=== PATIENT | male | born 1950 | race Caucasian/White ===

== ENCOUNTER 2024-07-14 00:52 | Observation (INO) ==
[2024-07-14] MEDS: SODIUM CHLORIDE 1,000 ML IV ONE ×2 (01:16→06:32)
[2024-07-14 01:24] LABS: BILIRUBIN,URINE Negative (NEGATIVE); CLARITY,URINE Clear (CLEAR); COLOR,URINE Yellow (YELLOW); GLUCOSE, URINE (UA) Negative (NEGATIVE); KETONES,URINE Negative (NEGATIVE); LEUKOCYTE ESTERASE ,URINE Negative (NEGATIVE); NITRITE,URINE Negative (NEGATIVE); PROTEIN,URINE Negative (NEGATIVE); URINE, BLOOD Trace-lysed (NEGATIVE)
--- NOTE | 2024-07-14 01:24 | ED.PDOC ---
General ED Provider: Dr. MIKE ASHLEY MD Chief Complaint: Abdominal Pain Stated Complaint: Patient is a 74-year-old male that came in the emergency department the [facility] for right lower quadrant abdominal pain. Patient states he thinks he is having appendicitis. Patient stated that he has had it before but that they did not do anything for him when he was a kid. Patient stated that the pain started 30 minutes prior to arrival. Patient stated that just laying there the pains only 3 out of 10. He states however if he moves around it becomes an 8 out of 10. Patient also stated that he has a allergy to iodine contrast for which she has a mild case of hives. Patient denied any nausea or vomiting with his abdominal pain. Patient denied any hematochezia, hemoptysis, or melanic stools. Patient denied any recent trauma to the abdomen. Patient denied any diarrhea or fever. Patient denies any other acute symptoms not currently mentioned in this HPI. Patient's vital signs are stable. Patient's GCS is 15. Time Seen by Provider: 07/14/24 00:58 Mode of Arrival: Walk-In Information Source: Patient Exam Limitations: No limitations Primary Care Provider: FLORY LARSON Nursing and Triage Documentation Reviewed and Agree: Yes What is Opioid Naive?: *Opioid Naive implies the patient is not already taking opioids or not chronically receiving opioids on a daily basis. *PRN dosing is not "usually" associated with tolerance. *Patients are at higher risk of over-sedation and aspiration. What is Opioid Tolerant?: *Opioid Tolerance implies less than the expected response to an opioid. *Acquired tolerance is defined by the patient taking 60mg of oral morphine daily (or equianalgesic dose of another opioid) for 1 week or more. *Often associated with chronic pain. *May take more than usual dose to achieve desired pain control. Review of Systems Review Of Systems Constitutional: Reports No symptoms Eyes: Reports No symptoms Ears, Nose, Mouth, Throat: Reports No symptoms Respiratory: Reports No symptoms Cardiac: Reports No symptoms GI: Reports Abdominal pain (Right lower quadrant abdominal pain.) : Reports No symptoms Musculoskeletal: Reports No symptoms Skin: Reports No symptoms Neurological: Reports No symptoms Endocrine: Reports No symptoms Hematologic/Lymphatic: Reports No symptoms All Other Systems: Reviewed and Negative [facility] Medical History Coronary bypass graft mechanical complication Hernia, femoral, 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 Social History Smoking and tobacco status: Never smoker Alcohol intake: never Surgical History H/O hernia repair Physical Exam Physical Exam Appearance: Reports Well-appearing, No pain distress and Well-nourished Ill-appearing: None Pain Distress: None Eyes: Reports KEELY, EOMI and Conjunctiva clear ENT: Reports Nose normal and Oropharynx normal Neck: Supple Respiratory: Reports Airway patent, Breath sounds clear, Breath sounds equal and Respirations nonlabored Cardiovascular: Reports RRR, Pulses normal, No rub and No murmur GI/: Reports Soft, Nontender, No masses, Bowel sounds normal and Tender (Patient had tenderness to palpation over the right lower abdominal quadrant at [place] point. Rebound tenderness was noted. ) Musculoskeletal: Reports Normal strength, ROM intact and No edema Skin: Reports Warm, Dry and Normal color Neurological: Reports Sensation intact, Motor intact, Reflexes intact, Cranial nerves intact, Alert and Oriented Psychiatric: Reports Affect appropriate and Mood appropriate Course Course 07/14/24 01:15 07/14/24 01:15 Orders, Labs, Meds: Lab Review 07/14/24 07/14/24 01:05 01:15 WBC 5.68 RBC 4.59 L Hgb 14.3 Hct 44.0 MCV 95.9 H MCH 31.2 H MCHC 32.5 RDW Coeff of Liss 13.3 Plt Count 112 L Immature Gran % (Auto) 0.2 Neut % (Auto) 61.3 Lymph % (Auto) 25.9 [place] % (Auto) 9.7 Eos % (Auto) 2.5 Baso % (Auto) 0.4 Neut # (Auto) 3.5 Lymph # (Auto) 1.5 [place] # (Auto) 0.6 Eos # (Auto) 0.1 Baso # (Auto) 0.0 Immature Gran # (Auto) 0.0 Sodium 138.5 Potassium 3.88 Chloride 104.2 Carbon Dioxide 25.5 Anion Gap 12.68 BUN 23.3 H Creatinine 1.68 H Estimated GFR (MDRD) 40.00 BUN/Creatinine Ratio 13.86 Glucose 104.1 Calcium 9.39 Total Bilirubin 0.70 AST 28.1 ALT 15.7 Alkaline Phosphatase 95.7 Total Protein 7.34 Albumin 4.37 Globulin 2.97 Albumin/Globulin Ratio 1.47 Lipase 178.3 Urine Color Yellow Urine Clarity Clear Urine pH 6.0 Ur Specific [place] 1.020 Urine Protein Negative Urine Glucose (UA) Negative Urine Ketones Negative Urine Blood Trace-lysed Urine Nitrite Negative Urine Bilirubin Negative Urine Urobilinogen 1.0 H Ur Leukocyte Esterase Negative Urine Microscopic RBC 0-2 Urine Microscopic WBC 0-2 Ur Squamous Epith Cells 0-2 Orders Category Date Time Status NPO REMINDER: IMAGING ONCE CARE 07/14/24 01:42 Active ED IV/MEDIPORT/POWERPORT .ONCE EMERGENCY 07/14/24 01:07 Active CBC W/ AUTO DIFF Stat LAB 07/14/24 01:15 Completed COMPREHENSIVE METABOLIC PANEL Stat LAB 07/14/24 01:15 Completed LIPASE Stat LAB 07/14/24 01:15 Completed URINALYSIS C & S IF INDICATED Stat LAB 07/14/24 01:05 Completed 0.9 % Sodium Chloride [Saline Flush] Meds 07/14/24 01:07 Active 1 syr IVF PRN PRN Diphenhydramine Inj [Benadryl] Meds 07/14/24 04:30 Discontinued 50 mg IVP ONCE ONE Iodixanol [Visipaque 320 mg/ml 100Ml] Meds 07/14/24 05:27 Discontinued 100 ml IVP ONCE ONE Ketorolac Tromethamine [Toradol] Meds 07/14/24 01:24 Discontinued 30 mg IVP ONCE STA Methylprednisolone Sod Succ/Pf [Solu-Medrol 40 mg] Meds 07/14/24 05:30 Discontinued 40 mg IVP ONCE ONE Methylprednisolone Sod Succ/Pf [Solu-Medrol 40 mg] Meds 07/14/24 01:17 Discontinued 40 mg IVP ONCE STA Sodium Chloride 0.9% [Sodium Chloride] 1,000 ml Meds 07/14/24 01:[address] ABDOMEN/PELVIS W CONTRAST Stat RADS 07/14/24 05:30 Completed Medications Generic Name Dose Route Start Last Admin Trade Name Freq PRN Reason Stop Dose Admin Sodium Chloride 1 syr 07/14/24 01:07 0.9% Sodium Chloride 10 Ml Disp.Syrin IVF PRN PRN To flush IV Discontinued Medications Generic Name Dose Route Start Last Admin Trade Name Freq PRN Reason Stop Dose Admin Diphenhydramine HCl 50 mg 07/14/24 04:30 07/14/24 04:28 Diphenhydramine Inj 50 Mg/Ml Vial IVP 07/14/24 04:31 50 mg ONCE ONE Administration Sodium Chloride 1,000 mls @ 1,000 mls/hr 07/14/24 01:07 07/14/24 04:02 Sodium Chloride IV 07/14/24 02:06 Infused BOLUS ONE Infusion Iodixanol 100 ml 07/14/24 05:27 07/14/24 05:27 Iodixanol 320 Mg/Ml 100ml IVP 07/14/24 05:28 100 ml ONCE ONE Administration Ketorolac Tromethamine 30 mg 07/14/24 01:24 07/14/24 01:35 Ketorolac Tromethamine 30 Mg/Ml Vial IVP 07/14/24 01:25 30 mg ONCE STA Administration Methylprednisolone Sodium Succinate 40 mg 07/14/24 01:17 07/14/24 01:30 Methylprednisolone Sod Succ/Pf 40 Mg/Ml Vial IVP 07/14/24 01:18 40 mg ONCE STA Administration Methylprednisolone Sodium Succinate 40 mg 07/14/24 05:30 07/14/24 05:39 Methylprednisolone Sod Succ/Pf 40 Mg/Ml Vial IVP 07/14/24 05:31 40 mg ONCE ONE Administration Vital Signs: Temp Pulse Resp BP Pulse Ox 07/14/24 00:53 98.4 F 73 18 171/92 H 98 Discharge Plan Discharge Patient Disposition: PLACED OBSERVATION Discharge Problem: Diverticulitis, Abdominal pain, acute, right lower quadrant, IMANI (acute kidney injury), Thrombocytopenia Did you review [place] [employer] for ALL controlled substances?: Not Applicable ED Provider: MIKE ASHLEY Condition: Stable Physician Progress Note: Patient is a 74-year-old male that came in the emergency department the [facility] for right lower quadrant abdominal pain. Patient states he thinks he is having appendicitis. Patient stated that he has had it before but that they did not do anything for him when he was a kid. Patient stated that the pain started 30 minutes prior to arrival. Patient stated that just laying there the pains only 3 out of 10. He states however if he moves around it becomes an 8 out of 10. Patient also stated that he has a allergy to iodine contrast for which she has a mild case of hives. Patient denied any nausea or vomiting with his abdominal pain. Patient denied any hematochezia, hemoptysis, or melanic stools. Patient denied any recent trauma to the abdomen. Patient denied any diarrhea or fever. Patient denies any other acute symptoms not currently mentioned in this HPI. Patient's vital signs are stable. Patient's GCS is 15. -Due to patient's iodine mild allergy. Will do a prophylactic contrast media reaction treatment with IV methylprednisolone 40 mg stat (0130). Will give another dose in 4 hours (0530). 1 hour before the procedure will give IV Benadryl 50 mg (0430). Then 1 hour after the IV Benadryl 50 mg will give IV contrast (0530) and get a CT of the abdomen and pelvis with contrast to rule out appendicitis or any other acute intra-abdominal pathology. -Will order IV fluids 1 L normal saline bolus for dehydration. -Will order baseline labs. -Will give IV Toradol 30 mg once for pain. -Pt has an IMANI. We are hydrating pt's kidneys as mentioned above with IV NS. -Pt was found to have a 112k thrombocytopenia which is stable from previous visits. -CT of the abdomen and pelvis shows 1. No urinary or bowel obstruction and normal appendix. 2. Focal area of decreased cortical enhancement within the medial posterior left kidney. Pyelonephritis is not excluded 3. Status post cholecystectomy. 4. Mild stranding along the margins of the sigmoid colon as seen on axial image 63. This likely represents mild acute uncomplicated diverticulitis. -Will treat patient's diverticulitis with IV zosyn 3.375 mg. Will continue IV maintenance fluids at 100 mL an hour for gentle hydration for patient's IMANI. -(0610) spoke to hospitalist here at [facility] about observation for this patient and she has agreed to admit the patient for an IMANI and diverticulitis for IV antibiotic therapy. Patient's stable at time of admission.
[2024-07-14 01:26] LABS: BASOPHILS % (AUTO) 0.4 % (0.0-3.0); EOSINOPHILS # (AUTO) 0.1 K/ul (0.0-0.7); EOSINOPHILS % (AUTO) 2.5 % (0.0-7.0); HEMOGLOBIN 14.3 g/dl (14.0-18.0); IMMATURE GRANULOCYTE % (AUTO) 0.2 % (0.0-5.0); LYMPHOCYTES # (AUTO) 1.5 K/uL (0.60-3.4); LYMPHOCYTES % (AUTO) 25.9 (10.0-50.0); MEAN CORPUSCULAR HEMOGLOBIN 31.2 pg (27.0-31.0); MEAN CORPUSCULAR HGB CONC 32.5 (31.8-35.4); MEAN CORPUSCULAR VOLUME 95.9 fl (80.0-94.0); MONOCYTES # (AUTO) 0.6 K/uL (0.4-2.0); MONOCYTES % (AUTO) 9.7 (0-10); NEUTROPHILS # (AUTO) 3.5 K/ul (2.0-6.9); NEUTROPHILS % (AUTO) 61.3 % (42.2-75.2); PLATELET COUNT 112 10^3/uL (140-440); RDW COEFFICIENT OF VARIATION 13.3 % (11.6-14.8); RED BLOOD COUNT 4.59 10^6/ul (4.70-6.10); WHITE BLOOD COUNT 5.68 K/ul (4.2-10.2)
[2024-07-14] MEDS: SOLU-MEDROL 40 MG IVP STA (01:30)
[2024-07-14 01:31] LABS: SQUAMOUS EPITHELIAL CELL,UR 0-2 (0-5); URINE RBC, MICROSCOPIC 0-2 (0-2); URINE WBC, MICROSCOPIC 0-2 (0-2)
[2024-07-14 01:34] LABS: ALANINE AMINOTRANSFERASE 15.7 U/L (0-50); ALBUMIN 4.37 g/dL (3.5-5.0); ALKALINE PHOSPHATASE 95.7 U/L (56-119); ASPARTATE AMINO TRANSFERASE 28.1 U/L (17-59); BILIRUBIN,TOTAL 0.7 mg/dL (0.2-1.3); BLOOD UREA NITROGEN 23.3 mg/dL (9-20); CALCIUM 9.39 mg/dL (8.4-10.2); CARBON DIOXIDE 25.5 mmol/L (22-30.0); CHLORIDE 104.2 mmol/L (98-107); CREATININE 1.68 mg/dL (0.60-1.10); GLUCOSE 104.1 mg/dL (74-106); LIPASE 178.3 U/L (23-300); POTASSIUM 3.88 mmol/L (3.5-5.1); SODIUM 138.5 mmol/L (134.5-145); TOTAL PROTEIN 7.34 g/dL (6.3-8.2)
[2024-07-14] MEDS: TORADOL IVP STA (01:35)
[2024-07-14] MEDS: BENADRYL IVP ONE (04:28)
[2024-07-14] MEDS: VISIPAQUE 320 MG/ML 100ML IVP ONE (05:27)
[2024-07-14] MEDS: SOLU-MEDROL 40 MG IVP ONE (05:39)
--- NOTE | 2024-07-14 06:04 | CT ---
EXAM: CT ABDOMEN PELVIS WITH INTRAVENOUS CONTRAST 07/14/2024. SAGITTAL AND CORONAL REFORMATTED IMAGE S OBTAINED HISTORY: Right lower quadrant pain COMPARISON: 05/20/2024 FINDINGS: The liver shows no acute abnormality. Gallbladder has been removed. The adrenal glands and right kidney show no acute abnormality. There is a focal area of decreased co rtical enhancement within the medial posterior left kidney. This can be seen on axial image 41 and c oronal image 59. Pyelonephritis is not excluded. There is no hydronephrosis. Unremarkable urinary bladder. The spleen and pancreas show no acute abnormality. There is no bowel obstruction. The appendix is normal. No free air. No free fluid. There is extensive colonic diverticulosis. Focal subtle stranding with in the right anterior pelvis adjacent to the sigmoid colon. This can be seen on axial image 63. Thi s likely represents mild acute uncomplicated diverticulitis. No pathologic appearing mesenteric or retroperitoneal lymphadenopathy. No acute osseous abnormality. IMPRESSION: 1. No urinary or bowel obstruction and normal appendix. 2. Focal area of decreased cortical enhancement within the medial posterior left kidney. Pyelonephr itis is not excluded 3. Status post cholecystectomy. 4. Mild stranding along the margins of the sigmoid colon as seen on axial image 63. This likely rep resents mild acute uncomplicated diverticulitis. All CT scans are performed using dose optimization techniques as appropriate to the performed exam an d include at least one of the following: Automated exposure control, adjustment of the mA and/or kV according t o size, and the use of iterative reconstruction technique.
[2024-07-14] MEDS: ZOSYN 3.375 GM 3.375 GM in SODIUM CHLORIDE 100ML 100 ML IV ONE (06:32)
[2024-07-14 06:42] LABS: SARS COV-2 RNA RAPID NAAT NEGATIVE (NEGATIVE)
[2024-07-14] MEDS ORDERED: TYLENOL PO PRN (08:41)
[2024-07-14] MEDS ORDERED: ZOFRAN SDV IVP PRN (08:42)
[2024-07-14 09:43] VITALS: BMI 22.2
[2024-07-14] MEDS: ASPIRIN EC PO SCH (09:49)
[2024-07-14] MEDS: CRESTOR PO SCH (09:49)
[2024-07-14] MEDS: ZOSYN 3.375 GM 3.375 GM in SODIUM CHLORIDE 100ML 100 ML IV SCH (12:08)
--- NOTE | 2024-07-14 13:43 | PCM ---
Date of Service Date Seen by Provider: 07/14/24 Time Seen by Provider: 08:30 Admit Day/Time Admission Date: 07/14/24 Admission Time: 06:22 Reason for Admission Chief Complaint: IMANI DIVERTICULITIS Hospital Provider Hospital Provider: MELANIE KING [place] [facility] [place] Primary Care Physician: FLORY LARSON History of Present Illness History of Present Illness: Patient is a 74 year old male with pmhx of diverticulitis, hypertension, hyperlipidemia, hx of melanoma who presented to the ER in the middle the night due to right lower quadrant pain. Patient states it started yesterday and then woke him up in the sleep. He was worried that he might have appendicitis. He denies any nausea, vomiting, diarrhea. States he does have a history of diverticulitis in the past but it has been a long time. In the ER CT was done showing a mild diverticulitis of the sigmoid colon. Patient denies pain in the left lower quadrant. It also showed an enhancement of the left kidney, cannot rule out pyelonephritis. Patient denies flank pain and his UA was negative. He states that he did just have a kidney stone removed back in May. Overall labs were unremarkable except for his creatinine was 1.68 with a baseline of 1.2. He was given Zosyn and fluids in the ER. Patient admitted to [facility]. Case Discussed With Case Discussed With: Patient's case was discussed with the ER Physicians, Dr. Marie. 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 C77.9 - Secondary and unspecified malignant neoplasm of lymph node, unspecified (ICD-10) Coronary bypass graft mechanical complication T82.218A - Other mechanical complication of coronary artery bypass graft, initial encounter (ICD-10) Hernia, femoral, bilateral recurrent K41.21 - Bilateral femoral hernia, without obstruction or gangrene, recurrent (ICD-10) Surgical History H/O hernia repair Z98.890 - Other specified postprocedural states (ICD-10) Z87.19 - Personal history of other diseases of the digestive system (ICD-10) Family History FATHER Cancer Mother CHF (congestive heart failure) Social History Smoking and tobacco status: Never smoker Alcohol intake: never Allergies Allergies Allergy/AdvReac Type Severity Reaction Status Date / Time Iodinated Contrast Media AdvReac Mild Hives Verified 07/14/24 01:07 Current Medications Home Medications aspirin 81 mg tablet,delayed release 81 mg PO QDAY 04/25/21 [History Confirmed 07/14/24 Last Taken 07/13/24 22:00 81 mg] lisinopril 30 mg tablet 30 mg PO QDAY 04/25/21 [History Confirmed 07/14/24 Last Taken 07/13/24 22:00 30 mg] rosuvastatin 40 mg tablet (Crestor) 40 mg PO QDAY 04/25/21 [History Confirmed 07/14/24 Last Taken 07/13/24 22:00 40 mg] acetaminophen 325 mg capsule (Tylenol) 650 mg (2 x 325 mg) PO Q8H PRN pain #30 caps 10/30/22 [Rx Confirmed 07/14/24 Last Taken Unknown] ondansetron 4 mg disintegrating tablet 4 mg PO Q6H PRN nausea and vomiting #30 tabs 05/20/24 [Rx Confirmed 07/14/24 Last Taken Unknown] Home Acetaminophen (Acetaminophen 325 Mg Tablet) 650 mg PO Q4H PRN PRN Reason: Mild Pain Aspirin (Aspirin 81 Mg Tablet.Dr) 81 mg PO DAILYWM2 JOY Last Admin: 07/14/24 09:49 Dose: 81 mg Sodium Chloride (Sodium Chloride) 1,000 mls @ 100 mls/hr IV .Q10H ONE Stop: 07/14/24 16:20 Last Admin: 07/14/24 06:32 Dose: 100 mls/hr Piperacillin Sod/Tazobactam (Sod 3.375 gm/ Sodium Chloride) 100 mls @ 200 mls/hr IV Q6HR JOY Stop: 07/17/24 11:59 Last Admin: 07/14/24 12:08 Dose: 200 mls/hr Ondansetron HCl (Ondansetron Hcl/Pf 4 Mg/2 Ml Sdv) 4 mg IVP Q6H PRN PRN Reason: Nausea / Vomiting Rosuvastatin Calcium (Rosuvastatin Calcium 10 Mg Tablet) 40 mg PO DAILY JOY Last Admin: 07/14/24 09:49 Dose: 40 mg Sodium Chloride (0.9% Sodium Chloride 10 Ml Disp.Syrin) 1 syr IVF PRN PRN PRN Reason: To flush IV Discontinued Medications Diphenhydramine HCl (Diphenhydramine Inj 50 Mg/Ml Vial) 50 mg IVP ONCE ONE Stop: 07/14/24 04:31 Last Admin: 07/14/24 04:28 Dose: 50 mg Sodium Chloride (Sodium Chloride) 1,000 mls @ 1,000 mls/hr IV BOLUS ONE Stop: 07/14/24 02:06 Last Infusion: 07/14/24 04:02 Dose: Infused Piperacillin Sod/Tazobactam (Sod 3.375 gm/ Sodium Chloride) 100 mls @ 200 mls/hr IV ONCE ONE Stop: 07/14/24 06:46 Last Admin: 07/14/24 06:32 Dose: 200 mls/hr Iodixanol (Iodixanol 320 Mg/Ml 100ml) 100 ml IVP ONCE ONE Stop: 07/14/24 05:28 Last Admin: 07/14/24 05:27 Dose: 100 ml Ketorolac Tromethamine (Ketorolac Tromethamine 30 Mg/Ml Vial) 30 mg IVP ONCE STA Stop: 07/14/24 01:25 Last Admin: 07/14/24 01:35 Dose: 30 mg Methylprednisolone Sodium Succinate (Methylprednisolone Sod Succ/Pf 40 Mg/Ml Vial) 40 mg IVP ONCE STA Stop: 07/14/24 01:18 Last Admin: 07/14/24 01:30 Dose: 40 mg Methylprednisolone Sodium Succinate (Methylprednisolone Sod Succ/Pf 40 Mg/Ml Vial) 40 mg IVP ONCE ONE Stop: 07/14/24 05:31 Last Admin: 07/14/24 05:39 Dose: 40 mg Opioid Naive vs. Tolerant Does Patient Take Opioids?: No Is Patient Opioid Naive?: Yes What is Opioid Naive?: *Opioid Naive implies the patient is not already taking opioids or not chronically receiving opioids on a daily basis. *PRN dosing is not "usually" associated with tolerance. *Patients are at higher risk of over-sedation and aspiration. Is Patient Opioid Tolerant?: No What is Opioid Tolerant?: *Opioid Tolerance implies less than the expected response to an opioid. *Acquired tolerance is defined by the patient taking 60mg of oral morphine daily (or equianalgesic dose of another opioid) for 1 week or more. *Often associated with chronic pain. *May take more than usual dose to achieve desired pain control. Review of Systems Constitutional: Denies Fever Head: Reports Normocephalic and Atraumatic Cardiovascular: Denies Chest pain or Chest Pressure Respiratory: Denies Cough or Shortness of air Gastrointestinal: Reports Abdominal pain; Denies Nausea, Vomiting, Diarrhea or Melena Genitourinary: Denies Dysuria or Hematuria Musculoskeletal: Denies Muscle Pain or Back Pain Dermatologic: Denies Rashes Neurological: Denies Headache, Dizziness, Syncope or Weakness Physical examination Most Recent Vital Signs: Most Recent Vital Signs Temperature 97.2 F L 07/14/24 09:24 Temperature Source Temporal Artery Scan 07/14/24 09:24 Temperature Source Infrared 07/14/24 00:53 Pulse Rate 62 07/14/24 09:24 Respiratory Rate 16 07/14/24 09:24 Blood Pressure 171/92 H 07/14/24 00:53 Blood Pressure Right Arm 138/92 07/14/24 09:24 Blood Pressure Position Supine 07/14/24 09:24 O2 Sat by Pulse Oximetry 96 07/14/24 09:24 Oxygen Delivery Method Room Air 07/14/24 13:00 Height 6 ft 07/14/24 09:24 Weight 74.5 kg 07/14/24 09:24 Appearance: Positive Well-appearing, Well-nourished, No Apparent Distress and Alert and Oriented x3 Skin: Positive [place], Warm, Good Turgor and Good Color; Negative Rashes HEENT: Positive Normocephalic and Atraumatic Neck: Positive Supple and Midline Trachea Chest/Lungs: Positive Clear to Auscultation Bilaterally; Negative Rales, Rhonci or Wheezes Heart: Positive RRR GI/: Positive Soft, Bowel Sounds Normal, No Distention and Tender (RLQ, mild ); Negative Guarding or Rigidity Extremities: Negative Edema Neurological: Positive Cranial Nerves Intact, Alert, Oriented and Muscle Strength 5/5 in Upper and Lower Extremities Bilaterally Psychiatric: Positive Oriented x4, Appropriate Mood, Appropriate Affect and Intact Memory Labs This Visit Labs This Visit: Labs This Visit 12/13/24 12/13/24 12/13/24 01:05 01:15 06:20 WBC 5.68 RBC 4.59 L Hgb 14.3 Hct 44.0 MCV 95.9 H MCH 31.2 H MCHC 32.5 RDW Coeff of Liss 13.3 Plt Count 112 L Immature Gran % (Auto) 0.2 Neut % (Auto) 61.3 Lymph % (Auto) 25.9 [place] % (Auto) 9.7 Eos % (Auto) 2.5 Baso % (Auto) 0.4 Neut # (Auto) 3.5 Lymph # (Auto) 1.5 [place] # (Auto) 0.6 Eos # (Auto) 0.1 Baso # (Auto) 0.0 Immature Gran # (Auto) 0.0 Sodium 138.5 Potassium 3.88 Chloride 104.2 Carbon Dioxide 25.5 Anion Gap 12.68 BUN 23.3 H Creatinine 1.68 H Estimated GFR (MDRD) 40.00 BUN/Creatinine Ratio 13.86 Glucose 104.1 Calcium 9.39 Total Bilirubin 0.70 AST 28.1 ALT 15.7 Alkaline Phosphatase 95.7 Total Protein 7.34 Albumin 4.37 Globulin 2.97 Albumin/Globulin Ratio 1.47 Lipase 178.3 Urine Color Yellow Urine Clarity Clear Urine pH 6.0 Ur Specific [place] 1.020 Urine Protein Negative Urine Glucose (UA) Negative Urine Ketones Negative Urine Blood Trace-lysed Urine Nitrite Negative Urine Bilirubin Negative Urine Urobilinogen 1.0 H Ur Leukocyte Esterase Negative Urine Microscopic RBC 0-2 Urine Microscopic WBC 0-2 Ur Squamous Epith Cells 0-2 SARS CoV-2 RNA Rapid LIANG Negative Imaging Imaging: EXAM: CT ABDOMEN PELVIS WITH INTRAVENOUS CONTRAST 07/14/2024. SAGITTAL AND CORONAL REFORMATTED IMAGES OBTAINED HISTORY: Right lower quadrant pain COMPARISON: 05/20/2024 FINDINGS: The liver shows no acute abnormality. Gallbladder has been removed. The adrenal glands and right kidney show no acute abnormality. There is a focal area of decreased cortical enhancement within the medial posterior left kidney. This can be seen on axial image 41 and coronal image 59. Pyelonephritis is not excluded. There is no hydronephrosis. Unremarkable urinary bladder. The spleen and pancreas show no acute abnormality. There is no bowel obstruction. The appendix is normal. No free air. No free fluid. There is extensive colonic diverticulosis. Focal subtle stranding within the right anterior pelvis adjacent to the sigmoid colon. This can be seen on axial image 63. This likely represents mild acute uncomplicated diverticulitis. No pathologic appearing mesenteric or retroperitoneal lymphadenopathy. No acute osseous abnormality. IMPRESSION: 1. No urinary or bowel obstruction and normal appendix. 2. Focal area of decreased cortical enhancement within the medial posterior left kidney. Pyelonephritis is not excluded 3. Status post cholecystectomy. 4. Mild stranding along the margins of the sigmoid colon as seen on axial image 63. This likely represents mild acute uncomplicated diverticulitis. Review Statement Review Statement: I have independently reviewed and interpreted the labs/EKGs/imaging that were ordered by the ER provider. I have reviewed all outside records that are available currently in our EMR including imaging/notes/labs from previous visits. Plan Plan: 1. Acute sigmoid diverticulitis - Cont zosyn, plan to transition to augmentin on discharge. Progress diet as tolerated. 2. IMANI, stage one - Cr 1.6, baseline 1.2. Continue fluids. 3. Hypertension - Hold lisinopril due to IMANI 4. Hyperlipidemia - Cont home meds DVT Prophylaxis: Ambulation Time Spent: Greater than 80 minutes spent with patient, 50% of the time spent with this patient was devoted to counseling and coordination of care. [facility] minutes spent discussing advance care planning. Admit to: Obs Discussed Plan of Care with Dr. Yin Moeller. Medications Medication Orders: Medications Ordered Category Date Time Status 0.9 % Sodium Chloride [Saline Flush] Meds 07/14/24 01:07 Active 1 syr IVF PRN PRN Acetaminophen [Tylenol] Meds 07/14/24 08:41 Active 650 mg PO Q4H PRN Aspirin [Aspirin EC] Meds 07/14/24 09:00 Active 81 mg PO DAILYWM2 Ondansetron HCl/Pf [Zofran Sdv] Meds 07/14/24 08:42 Active 4 mg IVP Q6H PRN Piperacillin Sodium/Tazobactam [Zosyn 3.375 gm] 3.375 Meds 07/14/24 12:00 Active gm 0.9 % Sodium Chloride [Sodium Chloride 100Ml] 100 ml IV Q6HR Rosuvastatin Calcium [Crestor] Meds 07/14/24 09:00 Active 40 mg PO DAILY Sodium Chloride 0.9% [Sodium Chloride] 1,000 ml Meds 07/14/24 06:21 Active IV 100 mls/hr
[2024-07-14 21:15] VITALS: PULSE 54
[2024-07-15 05:12] VITALS: BP 145/75; RESP 18; TEMP 97.8
[2024-07-15 05:21] LABS: BASOPHILS % (AUTO) 0.1 % (0.0-3.0); EOSINOPHILS % (AUTO) 0.1 % (0.0-7.0); HEMATOCRIT 38.3 % (42.0-52.0); HEMOGLOBIN 12.6 g/dl (14.0-18.0); IMMATURE GRANULOCYTE % (AUTO) 0.3 % (0.0-5.0); LYMPHOCYTES # (AUTO) 1.1 K/uL (0.60-3.4); LYMPHOCYTES % (AUTO) 15.2 (10.0-50.0); MEAN CORPUSCULAR HGB CONC 32.9 (31.8-35.4); MEAN CORPUSCULAR VOLUME 94.1 fl (80.0-94.0); MONOCYTES # (AUTO) 0.6 K/uL (0.4-2.0); NEUTROPHILS # (AUTO) 5.3 K/ul (2.0-6.9); NEUTROPHILS % (AUTO) 75.3 % (42.2-75.2); PLATELET COUNT 104 10^3/uL (140-440); RDW COEFFICIENT OF VARIATION 12.8 % (11.6-14.8); RED BLOOD COUNT 4.07 10^6/ul (4.70-6.10); WHITE BLOOD COUNT 7.09 K/ul (4.2-10.2)
[2024-07-15 05:32] LABS: ALANINE AMINOTRANSFERASE 11.8 U/L (0-50); ALBUMIN 3.3 g/dL (3.5-5.0); ALKALINE PHOSPHATASE 77.4 U/L (56-119); ASPARTATE AMINO TRANSFERASE 18.3 U/L (17-59); BILIRUBIN,TOTAL 0.56 mg/dL (0.2-1.3); CALCIUM 8.75 mg/dL (8.4-10.2); CARBON DIOXIDE 20.3 mmol/L (22-30.0); CHLORIDE 110.1 mmol/L (98-107); CREATININE 1.23 mg/dL (0.60-1.10); GLUCOSE 111.8 mg/dL (74-106); POTASSIUM 3.56 mmol/L (3.5-5.1); SODIUM 138.1 mmol/L (134.5-145); TOTAL PROTEIN 5.93 g/dL (6.3-8.2)
--- NOTE | 2024-07-15 09:14 | DCSUM ---
Admission Date Admission Date: 07/14/24 Discharge Date Discharge Date: 07/15/24 Admission Diagnosis Admission Diagnosis: 1. Acute sigmoid diverticulitis 2. IMANI, stage one Discharge Diagnosis Discharge Diagnosis: 1. Acute sigmoid diverticulitis 2. IMANI, stage one - resolved 3. Hypertension 4. Hyperlipidemia 5. Hx of melanoma Hospital Provider Hospital Provider: MELANIE KING PA-C, [facility] Primary Care Physician Primary Care Physician: FLORY LARSON Summary of History and Physical Summary of History and Physical: Patient is a 74 year old male with pmhx of diverticulitis, hypertension, hyperlipidemia, hx of melanoma who presented to the ER in the middle the night due to right lower quadrant pain. Patient states it started yesterday and then woke him up in the sleep. He was worried that he might have appendicitis. He denies any nausea, vomiting, diarrhea. States he does have a history of diverticulitis in the past but it has been a long time. In the ER CT was done showing a mild diverticulitis of the sigmoid colon. Patient denies pain in the left lower quadrant. It also showed an enhancement of the left kidney, cannot rule out pyelonephritis. Patient denies flank pain and his UA was negative. He states that he did just have a kidney stone removed back in May. Overall labs were unremarkable except for his creatinine was 1.68 with a baseline of 1.2. He was given Zosyn and fluids in the ER. Patient admitted to [facility]. Hospital Course Subjective: Patient did well. Diet was progressed. Not requiring any pain meds or antiemetics. IMANI resolved with fluids, at baseline renal function. He is requesting discharge. Labs and vitals stable. Will discharge on augmentin for 9 more days. F/u with pcp this coming week. Consider outpatient colonoscopy after 6-8 weeks. Pt agrees to plan of care. Appearance: Pleasant, No Apparent Distress and Alert HEENT: MMM CVS: Other (RRR) Abdomen: Soft, Non-Tender and No Distention Respiratory: No Accessory Muscle Use Extremities: No Edema Vital Signs: Most Recent Vital Signs Temperature 97.8 F 07/15/24 05:11 Temperature Source Temporal Artery Scan 07/15/24 05:11 Temperature Source Infrared 07/14/24 00:53 Pulse Rate 54 L 07/15/24 05:11 Respiratory Rate 18 07/15/24 05:11 Blood Pressure 145/75 H 07/15/24 05:11 Blood Pressure Mean 98 07/15/24 05:11 Blood Pressure Right Arm 138/92 07/14/24 09:24 Blood Pressure Location Left Arm 07/15/24 05:11 Blood Pressure Position Supine 07/15/24 05:11 O2 Sat by Pulse Oximetry 96 07/15/24 05:11 Oxygen Delivery Method Room Air 07/15/24 09:00 Height 6 ft 07/14/24 09:24 Weight 74.5 kg 07/14/24 09:24 Telemetry Type Remote Telemetry 07/15/24 07:00 Telemetry Monitoring Continues 07/15/24 07:00 Telemetry Heart Rate 53 L 07/15/24 07:00 EKG KS Interval 0.16 07/15/24 07:00 EKG QRS Interval 0.08 07/15/24 07:00 Telemetry Strip Reading SB 07/15/24 07:00 Imaging: EXAM: CT ABDOMEN PELVIS WITH INTRAVENOUS CONTRAST 07/14/2024. SAGITTAL AND CORONAL REFORMATTED IMAGES OBTAINED HISTORY: Right lower quadrant pain COMPARISON: 05/20/2024 FINDINGS: The liver shows no acute abnormality. Gallbladder has been removed. The adrenal glands and right kidney show no acute abnormality. There is a focal area of decreased cortical enhancement within the medial posterior left kidney. This can be seen on axial image 41 and coronal image 59. Pyelonephritis is not excluded. There is no hydronephrosis. Unremarkable urinary bladder. The spleen and pancreas show no acute abnormality. There is no bowel obstruction. The appendix is normal. No free air. No free fluid. There is extensive colonic diverticulosis. Focal subtle stranding within the right anterior pelvis adjacent to the sigmoid colon. This can be seen on axial image 63. This likely represents mild acute uncomplicated diverticulitis. No pathologic appearing mesenteric or retroperitoneal lymphadenopathy. No acute osseous abnormality. IMPRESSION: 1. No urinary or bowel obstruction and normal appendix. 2. Focal area of decreased cortical enhancement within the medial posterior left kidney. Pyelonephritis is not excluded 3. Status post cholecystectomy. 4. Mild stranding along the margins of the sigmoid colon as seen on axial image 63. This likely represents mild acute uncomplicated diverticulitis. Lab Results Last 24 Hours: 07/15/24 05:00 WBC 7.09 RBC 4.07 L Hgb 12.6 L Hct 38.3 L MCV 94.1 H MCH 31.0 MCHC 32.9 RDW Coeff of Liss 12.8 Plt Count 104 L Immature Gran % (Auto) 0.3 Neut % (Auto) 75.3 H Lymph % (Auto) 15.2 [place] % (Auto) 9.0 Eos % (Auto) 0.1 Baso % (Auto) 0.1 Neut # (Auto) 5.3 Lymph # (Auto) 1.1 [place] # (Auto) 0.6 Eos # (Auto) 0.0 Baso # (Auto) 0.0 Immature Gran # (Auto) 0.0 Sodium 138.1 Potassium 3.56 Chloride 110.1 H Carbon Dioxide 20.3 L Anion Gap 11.26 BUN 19.0 Creatinine 1.23 H Estimated GFR (MDRD) 57.00 BUN/Creatinine Ratio 15.44 Glucose 111.8 H Calcium 8.75 Total Bilirubin 0.56 AST 18.3 ALT 11.8 Alkaline Phosphatase 77.4 Total Protein 5.93 L Albumin 3.30 L Globulin 2.63 Albumin/Globulin Ratio 1.25 Discharge Instructions Discharge Planning: Discharge Planning > [address] Yin Moeller. Discharge Medications: Medications at Discharge (Home Meds & RX) Discharge Plan Discharge Discharge Orders: Discharge Patient (ONCE); Ordered 07/15/24 Ordered By: MELANIE KING Activity Restrictions/Additional Instructions: DISCHARGE TO HOME DX: DIVERTICULITIS PHARMACY: [facility] FOLLOW UP WITH PCP THIS COMING WEEK PROGRESS DIET TOLERATED Instructions: Acute Abdominal Pain (ED) Patient Disposition: HOME SELF-CARE Prescriptions: New amoxicillin-pot clavulanate 875-125 mg tablet 1 tab PO BID 9 Days Qty: 18 0RF Continued ondansetron 4 mg tablet,disintegrating 4 mg PO Q6H PRN (Reason: nausea and vomiting) Qty: 30 0RF acetaminophen [Tylenol] 325 mg capsule 650 mg PO Q8H PRN (Reason: pain) Qty: 30 0RF lisinopril 30 mg tablet 30 mg PO QDAY rosuvastatin [Crestor] 40 mg tablet 40 mg PO QDAY aspirin 81 mg tablet,delayed release (DR/EC) 81 mg PO QDAY Did you review [place] [employer] for ALL controlled substances?: Not Applicable Discussed opioids are addictive and Narcan is available by prescription or from pharmacy.: No Condition: Stable Referrals: FLORY LARSON [Primary Care Provider] - 07/21/24 2:15 pm
== END 2024-07-15 10:00 | disposition home or self-care (01) ==
LOC: ED 00:52 → MEDSURG B 00:52
PROVIDERS: ADMIT Hospitalist; ATTEND Physician Assistant
DX: Z20.822 Contact with and (suspected) exposure to COVID-19; E78.5 Hyperlipidemia, unspecified; I10 Essential (primary) hypertension; D69.6 Thrombocytopenia, unspecified; K57.32 Diverticulitis of large intestine without perforation or abscess without bleeding; Z87.442 Personal history of urinary calculi; Z85.820 Personal history of malignant melanoma of skin; N17.9 Acute kidney failure, unspecified